=== PATIENT | male | born 1990 | race Caucasian/White ===

== ENCOUNTER 2017-10-24 11:54 | Emergency (ER) | payer SELFPAY | END 2017-10-24 12:27 | disposition home or self-care (01) | LOC: MADERS 11:54 | DX: J02.0 Streptococcal pharyngitis (principal); E03.9 Hypothyroidism, unspecified; E78.5 Hyperlipidemia, unspecified; Z79.899 Other long term (current) drug therapy | CPT/HCPCS: 99282 ==